=== PATIENT | male | born 1950 | race Caucasian/White ===

== ENCOUNTER 2017-09-15 08:15 | Outpatient (CLI) | payer MEDICARE, OTHER ==
--- NOTE | 2017-09-15 10:09 | Diagnostic Imaging Report ---
DIXIE PATEL [facility] [address] [facility] [address] [address] Report Submission Date: Sep 15, 2017 9:52:07 AM PEDIATRIC RN Patient Study Name: MIGUEL LORENZO Date: Sep 15, 2017 8:26:51 AM PEDIATRIC RN Modality Type: CR Gender: M Description: SPINE : 50 Institution: [facility] Physician: DIXIE PATEL Examination: Plain film lumbar spine History: L-SPINE, LOW BACK PAIN X1 MONTH, NO KNOWN INJURY (Hx) / LBP (DICOM Hx) / LBP (Pt comments) Findings: 3 views of the lumbar spine demonstrates osteopenia. Osteophyte formation. Disc space narrowing L5/S1. No anterior compression. Vascular calcifications involving the abdominal aorta and iliac vessels. Impression: Osteopenia and degenerative changes. No vertebral body compression deformity. Electronically signed on Sep 15, 2017 9:52:07 AM PEDIATRIC RN by: Tony LORENZANA
--- NOTE | 2017-09-15 10:10 | Diagnostic Imaging Report ---
DIXIE PATEL [facility] [address] [facility] [address] [place], [place]. [address] Report Submission Date: Sep 15, 2017 9:53:35 AM TIE MAN Patient Study Name: MIGUEL LORENZO Date: Sep 15, 2017 8:28:49 AM TIE MAN Modality Type: CR Gender: M Description: PELVIS : 50 Institution: [facility] Physician: DIXIE PATEL Examination: Plain film left hip History: LT HIP, LT HIP PAIN X1 MONTH, NO KNOWN INJURY (Hx) / LT HIP PAIN ( DICOM Hx) / LT HIP PAIN (Pt comments) Comparison exams: None provided Findings: 2 views of the hip demonstrate normal cortical margins. Minimal acetabular spurring. No fracture no dislocation. Groin vascular calcifications. Impression: Minimal degenerative changes. No acute appearing osseous abnormality. Electronically signed on Sep 15, 2017 9:53:35 AM TIE MAN by: Tony LORENZANA
== END 2017-09-15 08:16 ==
LOC: RAD 08:15
PROVIDERS: ATTEND Family Medicine
DX: M25.552 Pain in left hip (principal); M54.2 Cervicalgia
CPT/HCPCS: 72100

== ENCOUNTER 2017-09-19 12:58 | Outpatient (CLI) | payer MEDICARE, OTHER | END 2017-09-19 13:00 | LOC: RAD 12:58 | PROVIDERS: ATTEND Family Medicine | DX: M85.80 Other specified disorders of bone density and structure, unspecified site (principal) | CPT/HCPCS: 77080 ==